=== PATIENT | male | born 1995 | race Caucasian/White ===

== ENCOUNTER 2022-03-31 18:18 | Emergency (ER) | payer BC ==
[2022-03-31 20:31] LABS: BLOOD UREA NITROGEN,BUN 11 mg/dL (7.0-18.0); CARBON DIOXIDE,CO2 25.7 mmol/L (21.0-32.0); CHLORIDE,CL 101 mmol/L (98-107); GLUCOSE RANDOM 131 mg/dL (74-106); POTASSIUM,K 4.2 mmol/L (3.5-5.1); SODIUM,NA 139 mmol/L (136-148)
[2022-03-31 21:02] LABS: ACETAMINOPHEN <2.0 ug/mL
== END 2022-03-31 21:03 | disposition left against medical advice (07) ==
LOC: MW.ED 18:18
DX: R44.3 Hallucinations, unspecified (principal); Z20.822 Contact with and (suspected) exposure to COVID-19
CPT/HCPCS: 36415; 70450; 70450-26; 80053; 80143; 80179; 80305-QW; 80307; 81003; 84443; 85025; 93005; 99282; 99285-25; U0002

== ENCOUNTER 2022-04-22 12:32 | Emergency (ER) | payer SELFPAY ==
[2022-04-22 14:44] LABS: ACETAMINOPHEN <2.0 ug/mL; BLOOD UREA NITROGEN,BUN 14 mg/dL (7.0-18.0); CARBON DIOXIDE,CO2 24.6 mmol/L (21.0-32.0); CHLORIDE,CL 101 mmol/L (98-107); GLUCOSE RANDOM 91 mg/dL (74-106); POTASSIUM,K 4.2 mmol/L (3.5-5.1); SODIUM,NA 136 mmol/L (136-148)
== END 2022-04-22 17:19 ==
LOC: MW.ED 12:32
DX: F22 Delusional disorders (principal); Z20.822 Contact with and (suspected) exposure to COVID-19
CPT/HCPCS: 36415; 80053; 80143; 80179; 80305-QW; 80307; 81003; 83735; 84439; 84443; 84481; 85025; 99284; 99285; U0002